=== PATIENT | female | born 1945 | race Caucasian/White ===

== ENCOUNTER → 2021-05-17 | Outpatient (CLI) | payer MEDICARE ==
[~2021-05-17] MED LIST: AMBIEN10 MG PO; ARICEPT10 MG PO; ASPIR-LOW81 MG PO; CARDIZEM120 MG PO; CLARITIN10 M2 PO; COLACE 100MG C100 MG PO; FOLIC ACID0.8 MG PO; LAMICTAL100 MG PO; LAMICTAL200 MG PO; LEVOXYL88 MCG PO; LISINOPRIL40 MG PO; LITHIUM CARBON150 MG PO; LITHIUM CARBON300 MG PO; LOPID TAB 600600 MG PO; REMERON15 MG PO; SEROQUEL50 MG PO; SINGULAIR10 MG PO; SYNTHROID100 MCG PO; VALIUM 5 MG TAB5 MG PO; VITAMIN D32000 UNIT PO; ZESTRIL40 MG PO; ZOFRAN4 MG PO; ZYRTEC10 M3 PO
== END ==
LOC: LAB 10:31
PROVIDERS: Emergency Medicine
DX: I10 Essential (primary) hypertension (principal); E03.8 Other specified hypothyroidism; E78.2 Mixed hyperlipidemia
CPT/HCPCS: 36415; 80053

== ENCOUNTER 2021-06-21 13:54 | Emergency (ER) | payer MEDICARE ==
[2021-06-21 15:01] LABS: HEMOGLOBIN 12.3 gm/dl (12.3-15.3); RED BLOOD COUNT 3.99 M/UL (4.00-5.10); WHITE BLOOD COUNT 7.2 K/UL (4.5-11.0)
[2021-06-21 15:25] LABS: BUN/CREATININE RATIO 21 (0-10)
[2021-06-21] MEDS ORDERED: ZITHROMAX250 MG PO (17:31)
[2021-06-21] MEDS ORDERED: AUGMENTIN 875-1 EACH PO (17:31)
== END 2021-06-21 20:02 | disposition home or self-care (01) ==
LOC: ER1 13:54
PROVIDERS: Physician Assistant
DX: J18.9 Pneumonia, unspecified organism (principal); Z20.822 Contact with and (suspected) exposure to COVID-19; I10 Essential (primary) hypertension; Z79.899 Other long term (current) drug therapy
CPT/HCPCS: 70450; 71045; 80053; 81001; 82550; 82553; 83605; 83874; 84439; 84443; 84484; 85025; 93005; 96374; 99285; J0696; U0002

== ENCOUNTER 2021-06-23 17:42 | Emergency (ER) | payer MEDICARE ==
[~2021-06-23 17:42] MED LIST changes: +AUGMENTIN 875-1 EACH PO; +ZITHROMAX250 MG PO
[2021-06-23 19:11] LABS: HEMOGLOBIN 11.4 gm/dl (12.3-15.3); RED BLOOD COUNT 3.7 M/UL (4.00-5.10)
[2021-06-23 19:39] LABS: BUN/CREATININE RATIO 15 (0-10)
[2021-06-23] MEDS ORDERED: MUCINEX600 MG PO (21:26)
== END 2021-06-23 22:00 | disposition home or self-care (01) ==
LOC: ER1 17:42
PROVIDERS: Physician Assistant
DX: J18.9 Pneumonia, unspecified organism (principal); I10 Essential (primary) hypertension; R05.9 Cough, unspecified; Z20.822 Contact with and (suspected) exposure to COVID-19
CPT/HCPCS: 0240U; 36600; 71250; 80053; 80178; 82550; 82553; 82803; 82962; 83615; 83874; 83880; 84484; 85025; 87040; 93005; 99285

== ENCOUNTER → 2021-07-20 | Outpatient (CLI) | payer MEDICARE ==
[~2021-07-20] MED LIST changes: +ALLOPURINOL100 MG PO; -ASPIR-LOW81 MG PO; +ASPIRIN EC81 MG PO; +CARBIDOPA-LEVO1 EA14 PO; -CARDIZEM120 MG PO; -COLACE 100MG C100 MG PO; +DILTIAZEM HCL90 MG PO; +GEMFIBROZIL600 MG PO; -LAMICTAL100 MG PO; +LEVOTHYROXINE125 MCG PO; +LEVOXYL100 MCG PO; -LEVOXYL88 MCG PO; -LISINOPRIL40 MG PO; -LOPID TAB 600600 MG PO; +MELOXICAM7.5 MG PO; +MONTELUKAST SOD10 MG PO; +MUCINEX600 MG PO; +MUCUS ER600 MG PO; +NAMENDA5 MG PO; +OXYBUTYNIN CHLOR5 M1 PO; +STOOL SOFTENER250 MG PO; +THERAGRAN M TAB1 EA PO; +TYLENOL 8 HOUR650 MG PO; -VALIUM 5 MG TAB5 MG PO; +VALIUM10 MG PO; -VITAMIN D32000 UNIT PO; +VITAMIN D350 MCG PO; +ZESTRIL20 MG PO; -ZYRTEC10 M3 PO; +ZYRTEC10 MG PO
[2021-07-20 12:03] LABS: HEMOGLOBIN 10.6 gm/dl (12.3-15.3); RED BLOOD COUNT 3.37 M/UL (4.00-5.10); WHITE BLOOD COUNT 3.3 K/UL (4.5-11.0)
[2021-07-22 14:16] LABS: CHOLESTEROL, TOTAL 219 mg/dL (100-199); HDL SIZE 9.4 nm (>=9.2); HDL-C 62 mg/dL (>39); HDL-P (TOTAL) 42.1 umol/L (>=30.5); LARGE HDL-P 9.4 umol/L (>=4.8); LARGE VLDL-P 10.4 nmol/L (<=2.7); LDL SIZE 19.6 nm (>20.5); LDL SIZE 19.6 nm (>=20.8); LDL-C 108 mg/dL (0-99); LDL-P 709 nmol/L (<1000); LP-IR SCORE 47 (<=45); SMALL LDL-P 460 nmol/L (<=527); TRIGLYCERIDES 291 mg/dL (0-149); VLDL SIZE 46.4 nm (<=46.6)
== END ==
LOC: LAB 10:43
PROVIDERS: Emergency Medicine
DX: J18.9 Pneumonia, unspecified organism (principal); R53.83 Other fatigue; G30.1 Alzheimer's disease with late onset; F31.70 Bipolar disorder, currently in remission, most recent episode unspecified; I10 Essential (primary) hypertension; G20 Parkinson's disease
CPT/HCPCS: 36415; 80053; 80061; 83704; 84443; 84550; 85025

== ENCOUNTER → 2021-08-16 | Outpatient (CLI) | payer MEDICARE | LOC: KOH-I 09:35 | DX: M51.36 Other intervertebral disc degeneration, lumbar region (principal); M54.50 Low back pain, unspecified; G89.29 Other chronic pain; R26.2 Difficulty in walking, not elsewhere classified; M47.816 Spondylosis without myelopathy or radiculopathy, lumbar region; Z91.81 History of falling | CPT/HCPCS: 72148 ==

== ENCOUNTER → 2021-09-23 | Outpatient (CLI) | payer MEDICARE | LOC: MAMO 10:17 | DX: Z12.31 Encounter for screening mammogram for malignant neoplasm of breast (principal) | CPT/HCPCS: 77063; 77067 ==

== ENCOUNTER → 2021-10-20 | Outpatient (CLI) | payer MEDICARE | LOC: LBRF 11:23 | DX: R53.83 Other fatigue (principal); R41.3 Other amnesia | CPT/HCPCS: 87086 ==

== ENCOUNTER → 2021-10-23 | Outpatient (CLI) | payer MEDICARE | LOC: LAB 15:47 | DX: F32.9 Major depressive disorder, single episode, unspecified (principal) | CPT/HCPCS: 36415; 82565 ==

== ENCOUNTER → 2021-11-12 | Outpatient (CLI) | payer MEDICARE | LOC: US 08:30 → NM 09:00 → US 09:02 | DX: N18.30 Chronic kidney disease, stage 3 unspecified (principal); M25.561 Pain in right knee; R06.02 Shortness of breath; R68.89 Other general symptoms and signs; R53.1 Weakness; N26.1 Atrophy of kidney (terminal); M17.11 Unilateral primary osteoarthritis, right knee; I21.9 Acute myocardial infarction, unspecified | CPT/HCPCS: ECHO; 73562; 78452; 93017; 93306; A9502; J2785 ==